=== PATIENT | male | born 1955 | race Caucasian/White ===

== ENCOUNTER 2019-07-12 04:05 | Inpatient (IN) | payer OTHER ==
--- NOTE | 2019-07-12 04:48 | RADIOLOGY REPORT (SQ) ---
CT head without contrast on 07/12/2019 at 4:08 AM CLINICAL INDICATION: Left-sided weakness TECHNIQUE: Multiple axial images are obtained throughout the head without the administration of contrast. This exam was performed according to our departmental dose-optimization program, which includes automated exposure control, adjustment of the mA and/or kV according to patient size and/or use of iterative reconstruction technique. Total DLP is 1043.77 mGy*cm. COMPARISON: None FINDINGS: There is no hydrocephalus. There is no CT evidence of acute infarct. There is no hemorrhage. There are no abnormal extra-axial fluid collections. There is no mass, mass effect or midline shift. No bony abnormality is noted. IMPRESSION: No acute intracranial abnormality.
[2019-07-12 04:55] LABS: INTERNATIONAL RATION (INR) 1.13; PARTIAL THROMBOPLASTIN TIME 26.5 SEC (23.5-35.8); PROTHROMBIN TIME 14.6 SEC (11.4-15.4)
--- NOTE | 2019-07-12 04:56 | RADIOLOGY REPORT (SQ) ---
EXAM DESCRIPTION: XR CHEST 1 VIEW COMPLETED DATE/TME: 07/12/2019 04:14 CLINICAL HISTORY: 64 years, Male, s/s stroke COMPARISON: None. NUMBER OF VIEWS: One TECHNIQUE: AP view of the chest LIMITATIONS: None. FINDINGS: The lungs are clear except for a calcified granuloma along the left upper lobe. Calcified left hilar lymph nodes are noted. There is no focal consolidation. The heart is normal in size. There is no pneumothorax or pleural effusion. The bones are unremarkable. IMPRESSION: No acute cardiopulmonary abnormality copyright 2010 [employer] [employer]- All Rights Reserved
[2019-07-12 05:00] LABS: ABSOLUTE BASOPHILS # (AUTO) 0.1 10^3/uL (0.0-0.2); ABSOLUTE EOSINOPHILS # (AUTO) 0.3 10^3/uL (0.0-0.6); ABSOLUTE LYMPHOCYTES (AUTO) 1.1 10^3/uL (0.5-4.7); ABSOLUTE MONOCYTES (AUTO) 0.5 10^3/uL (0.1-1.4); ABSOLUTE NEUT (AUTO) 3.4 10^3/uL (1.7-8.2); BASOPHILS % (AUTO) 1.1 % (0-2); EOSINOPHILS % (AUTO) 5.3 % (0-6); HEMATOCRIT 46.1 % (37.9-51.0); HEMOGLOBIN 15.9 g/dL (13.5-17.0); LYMPHOCYTES % (AUTO) 20.7 % (13-45); MEAN CORPUSCULAR HEMOGLOBIN 30.4 pg (27.0-33.4); MEAN CORPUSCULAR HGB CONC 34.6 g/dL (32.0-36.0); MEAN CORPUSCULAR VOLUME 88 fl (80-97); MONOCYTES % (AUTO) 8.8 % (3-13); PLATELET COUNT 194 10^3/uL (150-450); RED BLOOD COUNT 5.24 10^6/uL (4.35-5.55); RED CELL DISTRIBUTION WIDTH 13.3 % (11.5-14.0); SEGMENTED NEUTROPHILS % (AUTO) 64.1 % (42-78); TOTAL CELLS COUNTED % (AUTO) 100 %; WHITE BLOOD COUNT 5.3 10^3/uL (4.0-10.5)
[2019-07-12 05:11] LABS: ALBUMIN 4.2 g/dL (3.5-5.0); ALKALINE PHOSPHATASE 53 U/L (38-126); ANION GAP 8 (5-19); ASPARTATE AMINO TRANSFERASE 27 U/L (17-59); BILIRUBIN,TOTAL 0.7 mg/dL (0.2-1.3); BLOOD UREA NITROGEN 17 mg/dL (7-20); CALCIUM 9.7 mg/dL (8.4-10.2); CARBON DIOXIDE 26 mmol/L (22-30); CHLORIDE 104 mmol/L (98-107); CREATINE KINASE 128 U/L (55-170); GLUCOSE 138 mg/dL (75-110); POTASSIUM 4.1 mmol/L (3.6-5.0); TOTAL PROTEIN 7.1 g/dL (6.3-8.2)
[2019-07-12 05:22] LABS: CREATINE KINASE MB 1.64 ng/mL (<4.55)
[2019-07-12 05:24] LABS: TROPONIN I < 0.012 ng/mL
[2019-07-12] MEDS ORDERED: HYDRALAZINE HCL INJ/PF 20 MG/1 ML SDV IV ONE (06:12)
--- NOTE | 2019-07-12 06:12 | ER Document Report ---
ED Neuro Symptoms/Deficit - General Stated Complaint: POSSIBLE TIA Time Seen by Provider: 07/12/19 05:23 Notes: Patient is a 64-year-old male who presents to the emergency department with a chief complaint of strokelike symptoms. At 3:00 this morning he went to go get up and he ended up feeling a cramp in his left leg, which is normal for him, but then he was unable to move his left leg and his left arm and he has some slurred speech. Patient states that his symptoms ended up improving. Patient has a history of hypertension and is supposed to be on metoprolol and lisinopril, but has not been on them for the past month. Patient denies any major surgery. Has history of eye surgery in the past. - Related Data Allergies/Adverse Reactions: No Known Allergies Allergy (Unverified 07/12/19 06:36) Past Medical History - General Information source: Patient, Relative - Social History Smoking Status: Never Smoker Family History: Reviewed & Not Pertinent - Past Medical History Cardiac Medical History: Reports: Hx Hypertension Review of Systems - Review of Systems Notes: REVIEW OF SYSTEMS: CONSTITUTIONAL : Denies recent illness. Denies recent unintentional weight loss. Denies fever, chills, or sweats. EENT: Denies eye, ear, throat, or mouth pain, discharge, or symptoms. Denies nasal or sinus congestion. CARDIOVASCULAR: Denies chest pain. RESPIRATORY: Denies shortness of breath, cough, congestion, difficulty breathing, or wheezing. GASTROINTESTINAL: Denies nausea, vomiting, and diarrhea. Denies abdominal pain. Denies constipation. GENITOURINARY: Denies difficulty urinating, burning, blood in urine, urgency or frequency. MUSCULOSKELETAL: Denies neck and back pain. Denies joint pain or swelling. SKIN: Denies rash, itchiness, or lesions HEMATOLOGIC : Denies easy bruising or bleeding. LYMPHATIC: Denies swollen, painful, enlarged glands. NEUROLOGICAL: See HPI. PSYCHIATRIC: Denies stress, anxiety, alteration in sleep patterns, or depression. All other systems reviewed and negative. Physical Exam - Notes Notes: PHYSICAL EXAMINATION: GENERAL: Appears well, healthy, well-nourished, no acute distress. HEAD: Normocephalic, atraumatic. EYES: PERRL, conjunctiva normal, all extraocular movements intact, sclera nonicteric ENT: Moist mucous membranes. NECK: Supple, no noticeable swelling, redness, rash. Normal range of motion. LUNGS: Equal breath sounds bilaterally and clear to auscultation. No wheezes rales or rhonchi. CARDIOVASCULAR: S1-S2, regular rate, regular rhythm. Radial pulses 2+, normal. ABDOMEN: Normoactive bowel sounds. Soft, nontender, no guarding, no rebound tenderness, and no masses palpated. EXTREMITIES: Normal strength and range of motion, no pitting or edema. No cyanosis. NEUROLOGICAL: Moves all extremities upon command. Strength 5/5 in all extremities. PSYCH: Normal mood, normal affect. SKIN: Warm, dry. No rash, lesions, ulcerations noted. Normal skin turgor. Course - Re-evaluation Re-evalutation: 07/12/19 06:40 Hematology is unremarkable. Coags are unremarkable. Chemistries show glucose of 138. Troponin is negative. Patient has returned to baseline and there are no neurological deficits noted on my exam. Discussed this case with thierry Magana attending. He is recommending patient be admitted. Will call when dayshift is here. 07/12/19 07:35 Spoke with Marisabel Cerrato NP. Patient will be admitted to [facility]. - Laboratory Result Diagrams: 07/12/19 04:51 07/12/19 04:32 Laboratory results interpreted by me: 07/12/19 07/12/19 04:21 04:32 Glucose 138 H POC Glucose 130 H ED Alteplase Inc/Exc Criteria - Inclusion Criteria: 1: Patient presented to ED within 3 hours of acute ischemic stroke symptom onset? -: Yes 2: Did baseline CT exclude intracranial hemorrhage and/or other risk factors? -: Yes 3: Is the age of the patient 18 years of age or greater? -: Yes : If any of the above questions are answered "NO" then stop, patient is not a candidate for Alteplase, : If all of the above questions are answered "YES" then continue with Exclusion Criteria. - Exclusion Criteria: 1: Is there evidence of intracranial hemorrhage on baseline CT? -: No 2: Is there suspicion of subarachnoid hemorrhage (even if CT negative)? -: No 3: Is there a history of serious head trauma, recent previous stroke or PR within 3 months? -: No 4: Does the patient have a clinical presentation consistent with PR or post-PR pericarditis? -: No 5: Is there history of intracranial hemorrhage? -: No 6: On repeated measurement is Systolic BP greater than 185mmHg or Diastolic BP greater that 110 mmHg and is aggressive treatment needed to reduce blood pressure to these limits (e.g. constant infusion of an anti-hypertensive)? -: No 7: Did the patient awake with stroke symptoms? -: Yes 8: Has the patient had a lumbar puncture or an arterial puncture at a non- compressile site within 7 days? -: No 9: With in the last 14 days did the patient have surgery or major trauma? -: No 10: Is the patient or less than 2 weeks? -: No 11: Was there any active bleeding or acute trauma? -: No 12: Does the patient have intracranial neoplasm, arteriovenous malformation or aneurysm? -: No 13: Does the patient have abnormal glucose (less than 50 or greater than 400mg/dl)? Record glucose in Comment. -: No 14: Patient has rapidly improving symptoms at the time Alteplase is to be Administered. -: Yes 15: Does the patient have any risks for bleeding, including but not limited to: a.: Current use of Coumadin with PT greater than 15 seconds or INR greater than 1.7. b.: Current use of Pradaxa (Dabigatran). c.: Heparin administereed within the past 48 hours and PTT elevated. d.: Platelet count less than 100,000/mm. e.: Major surgery or serious trauma within 14 days. f.: Gastrointestinal or gynecological urinary bleeding within 14 days. g.: Myocardial Infarction (PR) within 3 months. -: No : If the answer to any of the above questions is "YES" then stop, the patient is not a candidate for Alteplase. : If the answer to all of the above questions is "NO" then the patient may be eligible for the Administration of Alteplase. : If the patient is noted to have seizure activity at onset of Stroke symptoms; Consult Neurologist for further evaluation. - The patient is: -: Included and is eligible to receive Alteplase. *Initiate bed placement at higher level of care* --: No Reviewed risks & benefits of thrombolytic therapy: I have reviewed the risks and benefits of thrombolytic therapy with the patient and/or his/her family. -: Excluded and not eligible to receive Alteplase for the above exclusions. -: Excluded and not eligible to receive Alteplase for other reasons (specify in comments): - Diagnosis of TIA: -: Patient presented with transient symptoms that are now resolved and no other neurologic findings are currently present. List symptoms in comments. -: Yes - Left sided weakness; slurred speech- now resolved -: Patient is NOT a candidate for tPA. -: Yes -: ____(put name in comment) has been consulted for admission and continued evaluation of risk factor assessment. Comment: Marisabel Cerrato NP Discharge - Discharge Clinical Impression: Left-sided weakness, Slurred speech Condition: Stable Disposition: ADMITTED INPATIENT Admitting Provider: Miriam (Hospitalist) Unit Admitted: [facility]
[2019-07-12] MEDS ORDERED: DOCUSATE SODIUM 100 MG CAPSULE PO PRN (07:42)
[2019-07-12] MEDS ORDERED: ACETAMINOPHEN 325 MG TABLET PO PRN (07:42)
[2019-07-12] MEDS ORDERED: ONDANSETRON HCL INJ/PF 4 MG/2 ML SDV IV PRN (07:42)
[2019-07-12] MEDS ORDERED: MAGNESIUM HYDROXIDE SUSP 30 ML UDCUP PO PRN (07:42)
[2019-07-12 08:31] LABS: CHOLESTEROL 182.24 mg/dL (0-200); TRIGLYCERIDES 123 mg/dL (<150)
[2019-07-12 08:42] LABS: DIRECT LDL 127 mg/dL (<100)
--- NOTE | 2019-07-12 09:40 | RADIOLOGY REPORT (SQ) ---
EXAM DESCRIPTION: MRI HEAD WITHOUT COMPLETED DATE/TIME: 07/12/2019 9:28 am REASON FOR STUDY: TIA; left sided weakness COMPARISON: None. TECHNIQUE: Multiplanar imaging includes non-contrasted T1, T2, FLAIR, and Diffusion with ADC map seq uences. Images stored on PACS. LIMITATIONS: None. FINDINGS: ANATOMY: No anomalies. Normal vascular flow voids. Pituitary fossa normal. CSF SPACES: Normal in size and contour. No hemorrhage. CEREBRUM: A few high-signal intensity lesions scattered throughout the white matter on FLAIR imaging with distribution suggesting chronic micro-vascular ischemic change. Sulci and gyri normal in size a nd contour. No evidence of hemorrhage, mass or extraaxial fluid collection. POSTERIOR FOSSA: No signal alteration. No hemorrhage. No edema, masses or mass effect. Internal viktoria tory canals, cerebello-pontine angles, mastoids normal. DIFFUSION: There is an oval area of abnormal high signal on diffusion in the right thalamus measuring 14 mm in maximum diameter. Dark on ADC map. ORBITS: No masses. Globes normal. PARANASAL SINUSES: No fluid levels. Mucosa normal. OTHER: No other significant finding. IMPRESSION: Acute, nonhemorrhagic lacunar type infarct right thalamus. EVIDENCE OF ACUTE STROKE: YES. 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 TECHNICAL DOCUMENTATION: JOB ID: [id number] [employer]- All Rights Reserved Reading location - IP/workstation name: [email or web address]
--- NOTE | 2019-07-12 09:41 | RADIOLOGY REPORT (SQ) ---
EXAM DESCRIPTION: MRA HEAD WITHOUT COMPLETED DATE/TIME: 07/12/2019 9:28 am REASON FOR STUDY: acute CVA COMPARISON: None. TECHNIQUE: Axial 3-D [id number] acquisition imaging performed through the brain in the area of t he [place]. Images reformatted using 3-D MIPS. LIMITATIONS: None. FINDINGS: SOURCE IMAGES: See separate report of the same date. 3-D MIP: No aneurysm. No occlusions. No significant stenosis. OTHER: No other significant finding. IMPRESSION: NORMAL MRA OF THE [place]. TECHNICAL DOCUMENTATION: JOB ID: [id number] [employer]- All Rights Reserved Reading location - IP/workstation name: [email or web address]
--- NOTE | 2019-07-12 09:46 | EKG REPORT ---
SEVERITY:- ABNORMAL ECG - SINUS RHYTHM PROBABLE INFERIOR INFARCT, AGE INDETERMINATE : Confirmed by: Alfa Segura 12-Jul-2019 09:46:12
[2019-07-12] MEDS: CLOPIDOGREL BISULFATE 75 MG TABLET PO SCH (10:14)
[2019-07-12] MEDS: ASPIRIN 81 MG TABLET, ENT COATED PO SCH (10:14)
[2019-07-12] MEDS ORDERED: MAGNESIUM OXIDE 400 MG TABLET PO ONE (11:00)
[2019-07-12] MEDS ORDERED: BACLOFEN 10 MG TABLET PO ONE (11:00)
--- NOTE | 2019-07-12 11:23 | RADIOLOGY REPORT (SQ) ---
EXAM DESCRIPTION: CAROTID DOPPLER COMPLETED DATE/TIME: 07/12/2019 11:06 am REASON FOR STUDY: TIA; left sided weakness COMPARISON: None. TECHNIQUE: Grayscale ultrasound, Doppler velocity and spectra, and color Doppler images acquired of the extra-cranial carotid and vertebral arteries. Images stored on PACS. LIMITATIONS: None. FINDINGS: RIGHT CAROTID CCA Velocities: Within normal limits. ICA Velocities Peak systolic 0.68 m/s. End diastolic 0.21 m/s. Proximal ICA/CCA peak systolic ratio 0.8. Spectra normal. No significant plaque. LEFT CAROTID CCA Velocities: Within normal limits. ICA Velocities Peak systolic 0.68 m/s. End diastolic 0.21 m/s. Proximal ICA/CCA peak systolic ratio 0.9. Spectra normal. No significant plaque. VERTEBRAL ARTERIES: Antegrade flow. Normal waveforms. SUBCLAVIAN ARTERIES: Not imaged. OTHER: No other significant finding. IMPRESSION: NO HEMODYNAMICALLY SIGNIFICANT STENOSIS. COMMENT: Quality ID #[id number]: Velocity criteria are extrapolated from the diameter data as defined by t he Society of Radiologists in Ultrasound Consensus Conference. Radiology 2003: 229; 340-346. TECHNICAL DOCUMENTATION: JOB ID: [id number] [employer] All Rights Reserved Reading location - IP/workstation name: [email or web address]
--- NOTE | 2019-07-12 12:56 | RADIOLOGY REPORT (SQ) ---
EXAM DESCRIPTION: VENOUS BILATERAL LOWER COMPLETED DATE/TIME: 07/12/2019 12:34 pm REASON FOR STUDY: pain/cramping. Acute CVA. COMPARISON: None. TECHNIQUE: Dynamic and static taylor scale and color images acquired of both lower extremity venous sy stems. Selected spectral images acquired with additional compression and augmentation maneuvers. Imag es stored on PACS. LIMITATIONS: None. FINDINGS: RIGHT LEG COMMON FEMORAL AND FEMORAL: Normal phasicity, compression and augmentation. No visualized echogenic m aterial on taylor scale. No defects on color images. POPLITEAL: Normal compression and augmentation. No visualized echogenic material on taylor scale. No de fects on color images. CALF VESSELS: Normal compression and augmentation. No visualized echogenic material on taylor scale. No defects on color image. GSV AND SSV: Normal compression. No visualized echogenic material on taylor scale. No defects on color images. ANY DEEP VENOUS INSUFFICIENCY: Not evaluated. ANY EVIDENCE OF POPLITEAL CYST: No. OTHER: No other significant finding. LEFT LEG COMMON FEMORAL AND FEMORAL: Normal phasicity, compression and augmentation. No visualized echogenic m aterial on taylor scale. No defects on color images. POPLITEAL: Normal compression and augmentation. No visualized echogenic material on taylor scale. No de fects on color images. CALF VESSELS: Normal compression and augmentation. No visualized echogenic material on taylor scale. No defects on color images. GSV AND SSV: Normal compression. No visualized echogenic material on taylor scale. No defects on color images. ANY DEEP VENOUS INSUFFICIENCY: Not evaluated. ANY EVIDENCE POPLITEAL CYST: No. OTHER: No other significant finding. IMPRESSION: NO EVIDENCE DVT OR SVT IN EITHER LEG. TECHNICAL DOCUMENTATION: JOB ID: [id number] [employer]- All Rights Reserved Reading location - IP/workstation name: [email or web address]
[2019-07-12] MEDS ORDERED: MAG HYDROX/AL HYDROX/SIMETH SUSP 30 ML UDCUP PO PRN (13:39)
[2019-07-12] MEDS: HEPARIN SOD (PORCINE) 5,000 UNIT/ML 1 ML VIAL SUBCUT SCH ×2 (15:18→21:19)
[2019-07-12] MEDS: CALCIUM CARBONATE 500 MG TAB.CHEW PO PRN (15:41)
[2019-07-12] MEDS ORDERED: HYDRALAZINE HCL INJ/PF 20 MG/1 ML SDV IV PRN (19:07)
--- NOTE | 2019-07-12 19:09 | PDOC H&P ---
History of Present Illness Admission Date/PCP: 07/12/19 08:07 IN CLINIC Patient complains of: Left sided weakness History of Present Illness: ALLAN LIMON is a 64 year old male who presented to the emergency department with complaint of left sided weakness noted upon waking with a right side calf cramp. He denied slurred speech, difficulty swallowing, headache, dizziness, blurred vision. He did have slight ambulatory dysfunction, though noted that he was having continued issues with muscle cramping. He does report that he has frequent leg cramps. He denied chest pain, palpitations, or prior history of atrial fibrillation. No prior history of TIA/CVA. Evaluation in the emergency department revealed hypertension (194/99) otherwise normal vital signs, normal CBC, coags, chemistry. EKG showed sinus rhythm. Head CT was negative for acute CVA. He was referred to the hospitalist service for admission and further evaluation of TIA. Past Medical History Cardiac Medical History: Reports: Hypertension Denies: Congestive Heart Failure, Coronary Artery Disease, Myocardial Infarction, Hyperlipidema Pulmonary Medical History: Reports: None EENT Medical History: Reports: None Neurological Medical History: Reports: None Endocrine Medical History: Reports: Obesity Renal/ Medical History: Reports: None Malignancy Medical History: Reports: None GI Medical History: Reports: None Musculoskeltal Medical History: Reports: None Skin Medical History: Reports: None Psychiatric Medical History: Reports: None Traumatic Medical History: Reports: None Hematology: Reports: None Infectious Medical History: Reports: None Past Surgical History Past Surgical History: Reports: Orthopedic Surgery, Other - Tear duct, Sinus Social History Information Source: Patient Lives with: Alone Smoking Status: Never Smoker Electronic Cigarette use?: No Frequency of Alcohol Use: Occasional Hx Recreational Drug Use: No Drugs: None Hx Prescription Drug Abuse: No - Advance Directive Resuscitation Status: Full Code Family History Family History: Reviewed & Not Pertinent Parental Family History Reviewed: Yes Children Family History Reviewed: Yes Sibling(s) Family History Reviewed.: Yes Medication/Allergy Home Medications: No Home Medications 07/12/19 Allergies/Adverse Reactions: No Known Allergies Allergy (Unverified 07/12/19 06:36) Review of Systems Constitutional: ABSENT: chills, fever(s), headache(s), weight gain, weight loss Eyes: ABSENT: visual disturbances Ears: ABSENT: hearing changes Cardiovascular: ABSENT: chest pain, dyspnea on exertion, edema, orthropnea, palpitations Respiratory: ABSENT: cough, hemoptysis Gastrointestinal: ABSENT: abdominal pain, constipation, diarrhea, hematemesis, hematochezia, nausea, vomiting Genitourinary: ABSENT: dysuria, hematuria Musculoskeletal: PRESENT: other - Right leg muscle cramp. ABSENT: joint swelling Integumentary: ABSENT: rash, wounds Neurological: PRESENT: focal weakness, lack of coordination. ABSENT: abnormal gait, abnormal speech, confusion, dizziness, syncope Psychiatric: ABSENT: anxiety, depression, homidical ideation, suicidal ideation Endocrine: ABSENT: cold intolerance, heat intolerance, polydipsia, polyuria Hematologic/Lymphatic: ABSENT: easy bleeding, easy bruising Physical Exam Vital Signs: Temp Pulse Resp BP Pulse Ox 97.7 F 71 12 176/87 H 100 07/12/19 04:15 07/12/19 06:00 07/12/19 07:01 07/12/19 07:01 07/12/19 07:01 Intake & Output 07/11/19 07/12/19 07/13/19 06:59 06:59 06:59 Weight 110 kg General appearance: PRESENT: no acute distress, cooperative, obese, well- developed, well-nourished Head exam: PRESENT: atraumatic, normocephalic Eye exam: PRESENT: conjunctiva pink, EOMI, PERRLA. ABSENT: scleral icterus Ear exam: PRESENT: normal external ear exam Mouth exam: PRESENT: moist, tongue midline Neck exam: ABSENT: carotid bruit, JVD, lymphadenopathy, thyromegaly Respiratory exam: PRESENT: clear to auscultation delores, symmetrical, unlabored. ABSENT: rales, rhonchi, wheezes Cardiovascular exam: PRESENT: RRR, +S1, +S2. ABSENT: diastolic murmur, rubs, systolic murmur Pulses: PRESENT: normal dorsalis pedis pul Vascular exam: PRESENT: normal capillary refill GI/Abdominal exam: PRESENT: normal bowel sounds, soft. ABSENT: distended, guarding, mass, organolmegaly, rebound, tenderness Rectal exam: PRESENT: deferred Extremities exam: PRESENT: full ROM. ABSENT: calf tenderness, clubbing, pedal edema Musculoskeletal exam: PRESENT: tenderness - RLE Neurological exam: PRESENT: alert, awake, oriented to person, oriented to place, oriented to time, oriented to situation, CN II-XII grossly intact, other - Rt blower room attendant 5/5, Lt blower room attendant 4/5, BLE dorsiflexion 5/5, no facial asymetry. ABSENT: motor sensory deficit Psychiatric exam: PRESENT: appropriate affect, normal mood. ABSENT: homicidal ideation, suicidal ideation Skin exam: PRESENT: dry, intact, warm. ABSENT: cyanosis, rash Results Laboratory Results: 07/12/19 04:51 07/12/19 04:32 07/12/19 07/12/19 07/12/19 04:32 04:32 04:51 WBC 5.3 RBC 5.24 Hgb 15.9 Hct 46.1 MCV 88 MCH 30.4 MCHC 34.6 RDW 13.3 Plt Count 194 Seg Neutrophils % 64.1 Sodium 138.1 Potassium 4.1 Chloride 104 Carbon Dioxide 26 Anion Gap 8 BUN 17 Creatinine 1.07 Est GFR ( Amer) > 60 Glucose 138 H Calcium 9.7 Total Bilirubin 0.7 AST 27 Alkaline Phosphatase 53 Total Protein 7.1 Albumin 4.2 Triglycerides 123 Cholesterol 182.24 LDL Cholesterol Direct 127 H VLDL Cholesterol 25.0 HDL Cholesterol 42 07/12/19 07/12/19 04:32 04:32 Creatine Kinase 128 CK-MB (CK-2) 1.64 Troponin I < 0.012 Impressions: Brain MRI with MRA 07/12/19 00:00 IMPRESSION: NORMAL MRA OF THE [place]. Head MRI 07/12/19 00:00 IMPRESSION: Acute, nonhemorrhagic lacunar type infarct right thalamus. EVIDENCE OF ACUTE STROKE: YES. 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 Chest X-Ray 07/12/19 04:14 IMPRESSION: No acute cardiopulmonary abnormality copyright 2011 [employer]- All Rights Reserved Head CT 07/12/19 04:14 IMPRESSION: No acute intracranial abnormality. Assessment and Plan - Diagnosis (1) Cerebrovascular accident (CVA) of right thalamus Is this a current diagnosis for this admission?: Yes Plan: Head CT negative. Head MRA benign. Head MRI demonstrated Acute, nonhemorrhagic lacunar type infarct of the right thalamus Carotid Doppler negative for hemodynamically significant stenosis. Bilateral venous Dopplers negative for SVT or DVT. EKG shows sinus rhythm; thus far no abnormal rhythms by telemetry. A1c 6.1%. HDL 42, LDL 127, triglycerides 123, total cholesterol 182. Patient is admitted to [facility] on continuous cardiac telemetry. He is placed on daily aspirin and Plavix. Start full dose statin. PT/OT/speech therapy consultation. Allow for permissive hypertension; IV hydralazine as needed for SBP greater than 180. Discharge planning and patient navigator consulted. (2) Hypertension Is this a current diagnosis for this admission?: Yes Plan: Patient admits to medication noncompliance with antihypertensive medications. Initial blood pressure in the ED 190s/90s; received IV hydralazine. Will allow permissive hypertension's x24 hours secondary to acute ischemic CVA. We will then gradually institute blood pressure control. Cardiac diet (3) Obesity (BMI 30.0-34.9) Is this a current diagnosis for this admission?: Yes Plan: Lifestyle modification dietary discretion advised. BMI 31.2 (4) Left-sided weakness Is this a current diagnosis for this admission?: Yes Plan: Secondary to #1. Evaluation management as above. - Time Time Spent with patient: 35 or more minutes Medications reviewed and adjusted accordingly: Yes Anticipated discharge: Home Within: within 24 hours
[2019-07-12] MEDS: ATORVASTATIN CALCIUM 80 MG TABLET PO SCH (21:19)
[2019-07-13 06:43] LABS: CHOLESTEROL 195.46 mg/dL (0-200); TRIGLYCERIDES 155 mg/dL (<150)
[2019-07-13] MEDS: HEPARIN SOD (PORCINE) 5,000 UNIT/ML 1 ML VIAL SUBCUT SCH ×3 (06:44→21:25)
[2019-07-13 06:53] LABS: DIRECT LDL 126 mg/dL (<100)
[2019-07-13] MEDS: ASPIRIN 81 MG TABLET, ENT COATED PO SCH (09:22)
[2019-07-13] MEDS: AMLODIPINE BESYLATE 10 MG TABLET PO SCH (09:22)
[2019-07-13] MEDS: CLOPIDOGREL BISULFATE 75 MG TABLET PO SCH (09:22)
--- NOTE | 2019-07-13 14:38 | PDOC PROGRESS REPORT ---
Subjective Progress Note for:: 07/13/19 Subjective:: ALLAN LIMON is a 64 year old male with a past medical history of hypertension who was admitted 07/12/2018 with an acute lacunar right thalamus CVA. The patient was seen on afternoon rounds. He is found resting in bed, comfortably, on room air. He is very fatigued and somewhat frustrated by his worsened left-sided weakness and ataxia following physical therapy this morning. He is encouraged that worsening symptoms when fatigued is expected in the immediate recovery period and that these exacerbations should lessen with time. We reviewed physical therapy's recommendation for acute rehabilitation and subsequent referral to Dr. Hansen. Spoke with the patient's on phone; they are both interested in maximizing therapy services. He denies headache, dizziness, blurred vision, slurred speech/difficulty swallowing chest pain, palpitations, dyspnea, orthopnea, abdominal pain, nausea, vomiting. He has no other questions or concerns at this time. No concerns per nursing. Of note, the patient confided that his son within the last couple of days. Understandably, he is feeling quite emotional and fatigued. This information was relayed to discharge planning as I anticipate that should he be admitted to an acute rehab facility, arrangements may need to be made for him to be able to attend his son's . Reason For Visit: TIA Physical Exam Vital Signs: Temp Pulse Resp BP Pulse Ox 97.5 F 72 16 158/87 H 94 07/13/19 08:14 07/13/19 12:00 07/13/19 12:00 07/13/19 12:00 07/13/19 12:00 Intake & Output 07/12/19 07/13/19 07/14/19 06:59 06:59 06:59 Intake Total 960 Output Total 1200 Balance -240 Weight 110 kg 104.8 kg General appearance: PRESENT: no acute distress, cooperative, well-developed, well-nourished Head exam: PRESENT: atraumatic, normocephalic Eye exam: PRESENT: conjunctiva pink, EOMI, PERRLA. ABSENT: scleral icterus Ear exam: PRESENT: normal external ear exam Mouth exam: PRESENT: moist, tongue midline Neck exam: ABSENT: carotid bruit, JVD, lymphadenopathy, thyromegaly Respiratory exam: PRESENT: clear to auscultation delores, symmetrical, unlabored. ABSENT: rales, rhonchi, wheezes Cardiovascular exam: PRESENT: RRR. ABSENT: diastolic murmur, rubs, systolic murmur Pulses: PRESENT: normal dorsalis pedis pul Vascular exam: PRESENT: normal capillary refill GI/Abdominal exam: PRESENT: normal bowel sounds, soft. ABSENT: distended, guarding, mass, organolmegaly, rebound, tenderness Rectal exam: PRESENT: deferred Extremities exam: PRESENT: full ROM. ABSENT: calf tenderness, clubbing, pedal edema Neurological exam: PRESENT: alert, awake, oriented to person, oriented to place, oriented to time, oriented to situation, CN II-XII grossly intact, other - Rt enforcement safety officer 5/5, Lt enforcement safety officer 4/5, BLE dorsiflexion 5/5, no facial asymetry. Decreased coordination; especially to left upper extremity. ABSENT: motor sensory deficit Psychiatric exam: PRESENT: appropriate affect, normal mood. ABSENT: homicidal ideation, suicidal ideation Skin exam: PRESENT: dry, intact, warm. ABSENT: cyanosis, rash Results Laboratory Results: 07/12/19 04:51 07/12/19 04:32 07/13/19 05:16 Triglycerides 155 H Cholesterol 195.46 LDL Cholesterol Direct 126 H VLDL Cholesterol 31.0 HDL Cholesterol 40 07/12/19 07/12/19 04:32 04:32 Creatine Kinase 128 CK-MB (CK-2) 1.64 Troponin I < 0.012 Impressions: Brain MRI with MRA 07/12/19 00:00 IMPRESSION: NORMAL MRA OF THE [place]. Head MRI 07/12/19 00:00 IMPRESSION: Acute, nonhemorrhagic lacunar type infarct right thalamus. EVIDENCE OF ACUTE STROKE: YES. RIGHT DIRECTOR TELEHEALTH. Venous Doppler Study 07/12/19 00:00 IMPRESSION: NO EVIDENCE DVT OR SVT IN EITHER LEG. Chest X-Ray 07/12/19 04:14 IMPRESSION: No acute cardiopulmonary abnormality copyright 2011 [employer]- All Rights Reserved Head CT 07/12/19 04:14 IMPRESSION: No acute intracranial abnormality. Carotid Doppler Study 07/12/19 07:44 IMPRESSION: NO HEMODYNAMICALLY SIGNIFICANT STENOSIS. Assessment and Plan - Diagnosis (1) Cerebrovascular accident (CVA) of right thalamus Is this a current diagnosis for this admission?: Yes Plan: Head CT negative. Head MRA benign. Head MRI demonstrated Acute, nonhemorrhagic lacunar type infarct of the right thalamus Carotid Doppler negative for hemodynamically significant stenosis. Bilateral venous Dopplers negative for SVT or DVT. EKG shows sinus rhythm; thus far no abnormal rhythms by telemetry. A1c 6.1%. HDL 42, LDL 127, triglycerides 123, total cholesterol 182. Patient is admitted to [facility] on continuous cardiac telemetry. He is placed on daily aspirin and Plavix. Continue full dose statin. Will start amlodipine today. PT/OT/speech therapy consultation. Discharge planning and patient navigator consulted. PT/OT recommending Acute Rehab; have consulted Dr. Hansen. (2) Hypertension Is this a current diagnosis for this admission?: Yes Plan: Patient admits to medication noncompliance with antihypertensive medications. Initial blood pressure in the ED 190s/90s; received IV hydralazine. Will start amlodipine today. Cardiac diet (3) Obesity (BMI 30.0-34.9) Is this a current diagnosis for this admission?: Yes Plan: Lifestyle modification dietary discretion advised. BMI 30.5 (4) Left-sided weakness Is this a current diagnosis for this admission?: Yes Plan: Secondary to #1. Evaluation and management as above. - Time Time Spent with patient: 35 or more minutes Medications reviewed and adjusted accordingly: Yes Anticipated discharge: Acute Rehab Within: when bed available
[2019-07-13] MEDS: ATORVASTATIN CALCIUM 80 MG TABLET PO SCH (21:25)
[2019-07-14] MEDS: HEPARIN SOD (PORCINE) 5,000 UNIT/ML 1 ML VIAL SUBCUT SCH ×3 (05:08→21:02)
[2019-07-14] MEDS: AMLODIPINE BESYLATE 10 MG TABLET PO SCH (09:25)
[2019-07-14] MEDS: ASPIRIN 81 MG TABLET, ENT COATED PO SCH (09:25)
[2019-07-14] MEDS: CLOPIDOGREL BISULFATE 75 MG TABLET PO SCH (09:25)
[2019-07-14] MEDS: BACLOFEN 10 MG TABLET PO PRN ×3 (09:26→21:02)
--- NOTE | 2019-07-14 16:12 | PDOC PROGRESS REPORT ---
Subjective Progress Note for:: 07/14/19 Subjective:: ALLAN LIMON is a 64 year old male with a past medical history of hypertension who was admitted 07/12/2018 with an acute lacunar right thalamus CVA. The patient was seen on afternoon rounds. He is found resting in bed, comfortably, on room air. He reports continued fatigue, though improved from yesterday. Continued left side weakness w/ difficulty with coordination; though notably improved from time of admission. He denies headache, dizziness, blurred vision, slurred speech/difficulty swallowing chest pain, palpitations, dyspnea, orthopnea, abdominal pain, nausea, vomiting. He has no other questions or concerns at this time. No concerns per nursing. Of note, the patient confided that his son within the last couple of days. Understandably, he is feeling quite emotional and fatigued. This information was relayed to discharge planning as I anticipate that should he be admitted to an acute rehab facility, arrangements may need to be made for him to be able to attend his son's . Reason For Visit: CVA RIGHT THALAMUS,HYPERTENSION,OBESITY,LEFT SIDED Physical Exam Vital Signs: Temp Pulse Resp BP Pulse Ox 97.7 F 73 15 150/83 H 97 07/14/19 11:15 07/14/19 14:00 07/14/19 12:00 07/14/19 12:00 07/14/19 12:00 Intake & Output 07/13/19 07/14/19 07/15/19 06:59 06:59 06:59 Intake Total 960 2631 Output Total 1200 1500 Balance -240 1131 Weight 104.8 kg 104.6 kg General appearance: PRESENT: no acute distress, cooperative, well-developed, well-nourished Head exam: PRESENT: atraumatic, normocephalic Eye exam: PRESENT: conjunctiva pink, EOMI, PERRLA. ABSENT: scleral icterus Ear exam: PRESENT: normal external ear exam Mouth exam: PRESENT: moist, tongue midline Respiratory exam: PRESENT: clear to auscultation delores, symmetrical, unlabored. ABSENT: rales, rhonchi, wheezes Cardiovascular exam: PRESENT: RRR, +S1, +S2. ABSENT: diastolic murmur, rubs, systolic murmur Pulses: PRESENT: normal dorsalis pedis pul Vascular exam: PRESENT: normal capillary refill GI/Abdominal exam: PRESENT: normal bowel sounds, soft. ABSENT: distended, guarding, mass, organolmegaly, rebound, tenderness Rectal exam: PRESENT: deferred Extremities exam: PRESENT: full ROM. ABSENT: calf tenderness, clubbing, pedal edema Neurological exam: PRESENT: alert, awake, oriented to person, oriented to place, oriented to time, oriented to situation, CN II-XII grossly intact, other - Rt interior systems carpenter 5/5, Lt interior systems carpenter 4/5, BLE dorsiflexion 5/5, no facial asymetry. Decreased coordination; especially to left upper extremity.. ABSENT: motor sensory deficit Psychiatric exam: PRESENT: appropriate affect, normal mood. ABSENT: homicidal ideation, suicidal ideation Skin exam: PRESENT: dry, intact, warm. ABSENT: cyanosis, rash Results Laboratory Results: 07/12/19 04:51 07/12/19 04:32 07/12/19 07/12/19 04:32 04:32 Creatine Kinase 128 CK-MB (CK-2) 1.64 Troponin I < 0.012 Impressions: Brain MRI with MRA 07/12/19 00:00 IMPRESSION: NORMAL MRA OF THE [place]. Head MRI 07/12/19 00:00 IMPRESSION: Acute, nonhemorrhagic lacunar type infarct right thalamus. EVIDENCE OF ACUTE STROKE: YES. 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 Venous Doppler Study 07/12/19 00:00 IMPRESSION: NO EVIDENCE DVT OR SVT IN EITHER LEG. Chest X-Ray 07/12/19 04:14 IMPRESSION: No acute cardiopulmonary abnormality copyright 2010 [employer]- All Rights Reserved Head CT 07/12/19 04:14 IMPRESSION: No acute intracranial abnormality. Carotid Doppler Study 07/12/19 07:44 IMPRESSION: NO HEMODYNAMICALLY SIGNIFICANT STENOSIS. Assessment and Plan - Diagnosis (1) Cerebrovascular accident (CVA) of right thalamus Is this a current diagnosis for this admission?: Yes Plan: Head CT negative. Head MRA benign. Head MRI demonstrated Acute, nonhemorrhagic lacunar type infarct of the right thalamus Carotid Doppler negative for hemodynamically significant stenosis. Bilateral venous Dopplers negative for SVT or DVT. EKG shows sinus rhythm; thus far no abnormal rhythms by telemetry. A1c 6.1%. HDL 42, LDL 127, triglycerides 123, total cholesterol 182. Patient is admitted to [facility]; will d/c telemetry. He is placed on daily aspirin and Plavix. Continue full dose statin. Will start amlodipine today. PT/OT/speech therapy consultation. Discharge planning and patient navigator consulted. PT/OT recommending Acute Rehab; awaiting bed offer. (2) Hypertension Is this a current diagnosis for this admission?: Yes Plan: Patient admits to medication noncompliance with antihypertensive medications. Initial blood pressure in the ED 190s/90s; received IV hydralazine. Blood pressures improved, but remain elevated 150/83 Will start lisinopril today. Continue amlodipine. Cardiac diet (3) Obesity (BMI 30.0-34.9) Is this a current diagnosis for this admission?: Yes Plan: Lifestyle modification dietary discretion advised. BMI 30.5 (4) Left-sided weakness Is this a current diagnosis for this admission?: Yes Plan: Secondary to #1. Evaluation and management as above. - Time Time Spent with patient: 25-34 minutes Medications reviewed and adjusted accordingly: Yes Anticipated discharge: Acute Rehab Within: when bed available
[2019-07-14] MEDS: LISINOPRIL 10 MG TABLET PO SCH (17:23)
[2019-07-14] MEDS: ATORVASTATIN CALCIUM 80 MG TABLET PO SCH (21:02)
[2019-07-15] MEDS: HEPARIN SOD (PORCINE) 5,000 UNIT/ML 1 ML VIAL SUBCUT SCH ×3 (06:21→21:13)
[2019-07-15] MEDS: ASPIRIN 81 MG TABLET, ENT COATED PO SCH (10:46)
[2019-07-15] MEDS: CLOPIDOGREL BISULFATE 75 MG TABLET PO SCH (10:46)
[2019-07-15] MEDS: AMLODIPINE BESYLATE 10 MG TABLET PO SCH (10:46)
[2019-07-15] MEDS: LISINOPRIL 10 MG TABLET PO SCH (10:47)
--- NOTE | 2019-07-15 14:27 | PDOC PROGRESS REPORT ---
Subjective Progress Note for:: 07/15/19 Subjective:: ALLAN LIMON is a 64 year old male with a past medical history of hypertension who was admitted 07/12/2018 with an acute lacunar right thalamus CVA. The patient was seen on afternoon rounds his present. He is found sitting up to the edge of the bed, comfortably, on room air. Continued left side weakness w/ difficulty with coordination; somewhat worse today. However, patient does report that he has been exercising frequently with the elastic band and may just be fatigued. He denies headache, dizziness, blurred vision, slurred speech/difficulty swallowing chest pain, palpitations, dyspnea, orthopnea, abdominal pain, nausea, vomiting. He has no other questions or concerns at this time. No concerns per nursing. Reason For Visit: CVA RIGHT THALAMUS,HYPERTENSION,OBESITY,LEFT SIDED Physical Exam Vital Signs: Temp Pulse Resp BP Pulse Ox 97.7 F 69 16 128/67 H 94 07/15/19 11:29 07/15/19 11:33 07/15/19 07:18 07/15/19 11:33 07/15/19 11:33 Intake & Output 07/14/19 07/15/19 07/16/19 06:59 06:59 06:59 Intake Total 2631 2382 1882 Output Total 1500 1075 300 Balance 1131 1307 1582 Weight 104.6 kg 104.8 kg General appearance: PRESENT: no acute distress, cooperative, well-developed, well-nourished - Overweight Head exam: PRESENT: atraumatic, normocephalic Eye exam: PRESENT: conjunctiva pink, EOMI, PERRLA. ABSENT: scleral icterus Ear exam: PRESENT: normal external ear exam Mouth exam: PRESENT: moist, tongue midline Respiratory exam: PRESENT: clear to auscultation delores, symmetrical, unlabored. ABSENT: rales, rhonchi, wheezes Cardiovascular exam: PRESENT: RRR. ABSENT: diastolic murmur, rubs, systolic murmur Pulses: PRESENT: normal dorsalis pedis pul Vascular exam: PRESENT: normal capillary refill GI/Abdominal exam: PRESENT: normal bowel sounds, soft. ABSENT: distended, guarding, mass, organolmegaly, rebound, tenderness Rectal exam: PRESENT: deferred Extremities exam: PRESENT: full ROM. ABSENT: calf tenderness, clubbing, pedal edema Musculoskeletal exam: PRESENT: ambulatory - With walker Neurological exam: PRESENT: alert, awake, oriented to person, oriented to place, oriented to time, oriented to situation, CN II-XII grossly intact. ABSENT: motor sensory deficit Psychiatric exam: PRESENT: appropriate affect, normal mood. ABSENT: homicidal ideation, suicidal ideation Skin exam: PRESENT: dry, intact, warm. ABSENT: cyanosis, rash Results Laboratory Results: 07/12/19 04:51 07/12/19 04:32 07/12/19 07/12/19 04:32 04:32 Creatine Kinase 128 CK-MB (CK-2) 1.64 Troponin I < 0.012 Impressions: Brain MRI with MRA 07/12/19 00:00 IMPRESSION: NORMAL MRA OF THE [place]. Head MRI 07/12/19 00:00 IMPRESSION: Acute, nonhemorrhagic lacunar type infarct right thalamus. EVIDENCE OF ACUTE STROKE: YES. RIGHT CHARGE HAND. Venous Doppler Study 07/12/19 00:00 IMPRESSION: NO EVIDENCE DVT OR SVT IN EITHER LEG. Chest X-Ray 07/12/19 04:14 IMPRESSION: No acute cardiopulmonary abnormality copyright 2011 [employer]- All Rights Reserved Head CT 07/12/19 04:14 IMPRESSION: No acute intracranial abnormality. Carotid Doppler Study 07/12/19 07:44 IMPRESSION: NO HEMODYNAMICALLY SIGNIFICANT STENOSIS. Assessment and Plan - Diagnosis (1) Cerebrovascular accident (CVA) of right thalamus Is this a current diagnosis for this admission?: Yes Plan: Head CT negative. Head MRA benign. Head MRI demonstrated Acute, nonhemorrhagic lacunar type infarct of the right thalamus Carotid Doppler negative for hemodynamically significant stenosis. Bilateral venous Dopplers negative for SVT or DVT. EKG shows sinus rhythm; thus far no abnormal rhythms by telemetry. A1c 6.1%. HDL 42, LDL 127, triglycerides 123, total cholesterol 182. Patient is admitted to [facility]; will d/c telemetry. He is placed on daily aspirin and Plavix. Continue full dose statin. Continue amlodipine and lisinopril for blood pressure control. PT/OT/speech therapy consultation. Discharge planning and patient navigator consulted. PT/OT recommending Acute Rehab; awaiting bed offer. (2) Hypertension Is this a current diagnosis for this admission?: Yes Plan: Excellent blood pressure control today. Initial blood pressure in the ED 190s/90s; received IV hydralazine. Continue amlodipine and lisinopril IV hydralazine as needed for blood pressure control Cardiac diet (3) Obesity (BMI 30.0-34.9) Is this a current diagnosis for this admission?: Yes Plan: Lifestyle modification dietary discretion advised. BMI 30.5 (4) Acid reflux Qualifiers: Esophagitis presence: without esophagitis Qualified Code(s): K21.9 - Gastro-esophageal reflux disease without esophagitis Is this a current diagnosis for this admission?: Yes Plan: TUMS and Maalox as needed Twice daily Pepcid (5) Left-sided weakness Is this a current diagnosis for this admission?: Yes Plan: Secondary to #1. Evaluation and management as above. - Time Time Spent with patient: 15-24 minutes Medications reviewed and adjusted accordingly: Yes Anticipated discharge: Acute Rehab Within: when bed available
[2019-07-15] MEDS: ATORVASTATIN CALCIUM 80 MG TABLET PO SCH (21:11)
[2019-07-15] MEDS: FAMOTIDINE 20 MG TABLET PO SCH (21:11)
[2019-07-16] MEDS: HEPARIN SOD (PORCINE) 5,000 UNIT/ML 1 ML VIAL SUBCUT SCH ×3 (05:41→21:06)
[2019-07-16] MEDS: CLOPIDOGREL BISULFATE 75 MG TABLET PO SCH (10:03)
[2019-07-16] MEDS: LISINOPRIL 10 MG TABLET PO SCH (10:03)
[2019-07-16] MEDS: FAMOTIDINE 20 MG TABLET PO SCH ×2 (10:03→21:06)
[2019-07-16] MEDS: AMLODIPINE BESYLATE 10 MG TABLET PO SCH (10:04)
[2019-07-16] MEDS: ASPIRIN 81 MG TABLET, ENT COATED PO SCH (10:05)
--- NOTE | 2019-07-16 15:39 | PDOC TRANSFER SUMMARY ---
General Admission Date/PCP: 07/12/19 08:07 [facility] Admission Date: 07/12/19 Transfer Date: 07/18/19 - Anticipated transfer date Accepting Facility: [facility] Resuscitation Status: Full Code - Transfer Diagnosis (1) Cerebrovascular accident (CVA) of right thalamus Is this a current diagnosis for this admission?: Yes Diagnosis Summary: Head CT negative. Head MRA benign. Head MRI demonstrated Acute, nonhemorrhagic lacunar type infarct of the right thalamus Carotid Doppler negative for hemodynamically significant stenosis. Bilateral venous Dopplers negative for SVT or DVT. EKG shows sinus rhythm; no abnormal rhythms by telemetry. A1c 6.1%. HDL 42, LDL 127, triglycerides 123, total cholesterol 182. Patient was admitted to [facility] on continuous cardiac telemetry. He was not noted to have any abnormal rhythms by telemetry x72 hours. He was placed on daily aspirin, statin, and Plavix therapy. Amlodipine and lisinopril were started for blood pressure control after allowing for permissive hypertension. PT/OT/ST consultations were obtained. PT/OT recommend transfer for acute rehabilitation. (2) Hypertension Is this a current diagnosis for this admission?: Yes Diagnosis Summary: Initial blood pressure is 190/97. Excellent blood pressure control achieved with amlodipine and lisinopril following 24 hours of permissive hypertension. Patient is placed on a cardiac diet. (3) Obesity (BMI 30.0-34.9) Is this a current diagnosis for this admission?: Yes Diagnosis Summary: Lifestyle modification dietary discretion advised. BMI 30.5 (4) Acid reflux Is this a current diagnosis for this admission?: Yes Diagnosis Summary: Patient placed on twice daily Pepcid. Tums and Maalox as needed. (5) Left-sided weakness Is this a current diagnosis for this admission?: Yes Diagnosis Summary: Improved. Secondary #1. Evaluation management as above. - Transfer Medications Transfer Medications: Current Medications Acetaminophen (Tylenol 325 Mg Tablet) 650 mg PO Q4HP PRN PRN Reason: Temp greater than 101F Stop: 08/11/19 07:41 Al Hydrox/Mg Hydrox/Simethicone (Maalox Plus Susp 30 Udcup) 30 ml PO Q6HP PRN PRN Reason: HEARTBURN Stop: 08/11/19 13:38 Amlodipine Besylate (Norvasc 10 Mg Tablet) 10 mg PO DAILY [facility] Stop: 08/12/19 09:59 Last Admin: 07/16/19 10:04 Dose: 10 mg Documented by: Aspirin (Ecotrin 81 Mg Ec Tablet) 81 mg PO DAILY [facility] Stop: 08/11/19 09:59 Last Admin: 07/16/19 10:05 Dose: 81 mg Documented by: Atorvastatin Calcium (Lipitor 80 Mg Tablet) 80 mg PO QHS [facility] Stop: 08/11/19 21:59 Last Admin: 07/15/19 21:11 Dose: 80 mg Documented by: Baclofen (Baclofen 10 Mg Tablet) 10 mg PO TIDP PRN PRN Reason: MUSCLE SPASMS Stop: 08/11/19 19:06 Last Admin: 07/14/19 21:02 Dose: 10 mg Documented by: Calcium Carbonate (Tums Chewable 500 Mg Tab.Chew) 500 mg PO TIDP PRN PRN Reason: HEARTBURN Stop: 08/11/19 13:38 Last Admin: 07/12/19 15:41 Dose: 500 mg Documented by: Clopidogrel Bisulfate (Plavix 75 Mg Tablet) 75 mg PO DAILY [facility] Stop: 08/11/19 09:59 Last Admin: 07/16/19 10:03 Dose: 75 mg Documented by: Docusate Sodium (Colace 100 Mg Capsule) 100 mg PO BIDP PRN PRN Reason: FOR CONSTIPATION Stop: 08/11/19 07:41 Famotidine (Pepcid 20 Mg Tablet) 20 mg PO Q12 [facility] Stop: 08/14/19 21:59 Last Admin: 07/16/19 10:03 Dose: 20 mg Documented by: Heparin Sodium (Porcine) (Heparin Inj 5,000 Units/Ml 1 Ml Vial) 5,000 unit SUBCUT Q8 [facility] Stop: 08/11/19 13:59 Last Admin: 07/16/19 14:24 Dose: 5,000 unit Documented by: Hydralazine HCl (Apresoline Inj/Pf 20 Mg/1 Ml Sdv) 10 mg IV Q6HP PRN PRN Reason: SBP>180, DBP>100 Stop: 08/11/19 19:06 Lisinopril (Prinivil 10 Mg Tablet) 10 mg PO DAILY [facility] Stop: 08/13/19 16:59 Last Admin: 07/16/19 10:03 Dose: 10 mg Documented by: Magnesium Hydroxide (Milk Of Magnesia 30 Ml Udcup) 30 ml PO HSP PRN PRN Reason: FOR CONSTIPATION Stop: 08/11/19 07:41 Ondansetron HCl (Zofran Inj/Pf 4 Mg/2 Ml Sdv) 8 mg IV Q6HP PRN PRN Reason: FOR NAUSEA/VOMITING Stop: 08/11/19 07:41 Sodium Chloride (Saline Flush 2.5 Ml Monoject Prefil Syrin) 2.5 ml IV Q8 [facility] Stop: 08/11/19 13:59 Last Admin: 07/16/19 14:27 Dose: Not Given Documented by: - Allergies Allergies/Adverse Reactions: No Known Allergies Allergy (Unverified 07/12/19 06:36) - Diet/Activity Discharge Diet: Cardiac Discharge Activity: Balance Activity w/Rest Hospital Course Hospital Course: H&P: ALLAN LIMON is a 64 year old male who presented to the emergency department with complaint of left sided weakness noted upon waking with a right side calf cramp. He denied slurred speech, difficulty swallowing, headache, dizziness, blurred vision. He did have slight ambulatory dysfunction, though noted that he was having continued issues with muscle cramping. He does report that he has frequent leg cramps. He denied chest pain, palpitations, or prior history of atrial fibrillation. No prior history of TIA/CVA. Evaluation in the emergency department revealed hypertension (194/99) otherwise normal vital signs, normal CBC, coags, chemistry. EKG showed sinus rhythm. Head CT was negative for acute CVA. He was referred to the hospitalist service for admission and further evaluation of TIA. Course: As above Physical Exam Vital Signs: Temp Pulse Resp BP Pulse Ox 97.8 F 76 18 122/69 99 07/16/19 13:20 07/16/19 14:00 07/16/19 13:20 07/16/19 13:20 07/16/19 13:20 Intake & Output 07/15/19 07/16/19 07/17/19 06:59 06:59 06:59 Intake Total 2382 2992 Output Total 1075 1900 Balance 1307 1092 Weight 104.8 kg 104.8 kg General appearance: PRESENT: no acute distress, cooperative, obese, well- developed, well-nourished Head exam: PRESENT: atraumatic, normocephalic Eye exam: PRESENT: conjunctiva pink, EOMI, PERRLA. ABSENT: scleral icterus Ear exam: PRESENT: normal external ear exam Mouth exam: PRESENT: moist, tongue midline Neck exam: ABSENT: carotid bruit, JVD, lymphadenopathy, thyromegaly Respiratory exam: PRESENT: clear to auscultation delores, symmetrical, unlabored. ABSENT: rales, rhonchi, wheezes Cardiovascular exam: PRESENT: RRR, +S1, +S2. ABSENT: diastolic murmur, rubs, systolic murmur Pulses: PRESENT: normal dorsalis pedis pul Vascular exam: PRESENT: normal capillary refill GI/Abdominal exam: PRESENT: normal bowel sounds, soft. ABSENT: distended, guarding, mass, organolmegaly, rebound, tenderness Rectal exam: PRESENT: deferred Extremities exam: PRESENT: full ROM. ABSENT: calf tenderness, clubbing, pedal edema Musculoskeletal exam: PRESENT: ambulatory - w/ front wheel walker Neurological exam: PRESENT: alert, awake, oriented to person, oriented to place, oriented to time, oriented to situation, CN II-XII grossly intact, other - Rt baby formula worker 5/5, Lt baby formula worker 4/5, BLE dorsiflexion 5/5, no facial asymetry. Decreased coordination; especially to left upper extremity. ABSENT: motor sensory deficit Psychiatric exam: PRESENT: appropriate affect, normal mood. ABSENT: homicidal ideation, suicidal ideation Skin exam: PRESENT: dry, intact, warm. ABSENT: cyanosis, rash Results Laboratory Results: 07/12/19 04:51 07/12/19 04:32 07/12/19 07/12/19 04:32 04:32 Creatine Kinase 128 CK-MB (CK-2) 1.64 Troponin I < 0.012 Impressions: Brain MRI with MRA 07/12/19 00:00 IMPRESSION: NORMAL MRA OF THE [place]. Head MRI 07/12/19 00:00 IMPRESSION: Acute, nonhemorrhagic lacunar type infarct right thalamus. EVIDENCE OF ACUTE STROKE: YES. 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 Venous Doppler Study 07/12/19 00:00 IMPRESSION: NO EVIDENCE DVT OR SVT IN EITHER LEG. Chest X-Ray 07/12/19 04:14 IMPRESSION: No acute cardiopulmonary abnormality copyright 2011 [employer]- All Rights Reserved Head CT 07/12/19 04:14 IMPRESSION: No acute intracranial abnormality. Carotid Doppler Study 07/12/19 07:44 IMPRESSION: NO HEMODYNAMICALLY SIGNIFICANT STENOSIS. Plan Discharge Plan: Transfer to Acute Rehab pending patient insurance authorization. Time Spent: Greater than 30 Minutes
[2019-07-16] MEDS: ATORVASTATIN CALCIUM 80 MG TABLET PO SCH (21:06)
[2019-07-17] MEDS: HEPARIN SOD (PORCINE) 5,000 UNIT/ML 1 ML VIAL SUBCUT SCH ×3 (05:26→21:15)
[2019-07-17] MEDS: LISINOPRIL 10 MG TABLET PO SCH (10:50)
[2019-07-17] MEDS: FAMOTIDINE 20 MG TABLET PO SCH ×2 (10:51→21:14)
[2019-07-17] MEDS: ASPIRIN 81 MG TABLET, ENT COATED PO SCH (10:51)
[2019-07-17] MEDS: CLOPIDOGREL BISULFATE 75 MG TABLET PO SCH (10:51)
[2019-07-17] MEDS: AMLODIPINE BESYLATE 10 MG TABLET PO SCH (10:51)
--- NOTE | 2019-07-17 18:35 | PDOC PROGRESS REPORT ---
Subjective Progress Note for:: 07/17/19 Subjective:: ALLAN LIMON is a 64 year old male with a past medical history of hypertension who was admitted 07/12/2018 with an acute lacunar right thalamus CVA. The patient was seen on evening rounds. He was found resting in bed, comfortably, on room air. Continued left side weakness w/ difficulty with coordination; waxing and waning. Overall, improved. He denies headache, dizziness, blurred vision, slurred speech/difficulty swallowing chest pain, palpitations, dyspnea, orthopnea, abdominal pain, nausea, vomiting. He has no other questions or concerns at this time. No concerns per nursing. Reason For Visit: CVA RIGHT THALAMUS,HYPERTENSION,OBESITY,LEFT SIDED Physical Exam Vital Signs: Temp Pulse Resp BP Pulse Ox 98.0 F 81 18 136/81 H 97 07/17/19 10:50 07/17/19 10:50 07/17/19 10:50 07/17/19 10:50 07/17/19 10:50 Intake & Output 07/16/19 07/17/19 07/18/19 06:59 06:59 06:59 Intake Total 2992 1200 350 Output Total 1900 1200 500 Balance 1092 0 -150 Weight 104.8 kg 104.1 kg General appearance: PRESENT: no acute distress, cooperative, well-developed, well-nourished Head exam: PRESENT: atraumatic, normocephalic Eye exam: PRESENT: conjunctiva pink, EOMI, PERRLA. ABSENT: scleral icterus Mouth exam: PRESENT: moist, tongue midline Respiratory exam: PRESENT: clear to auscultation delores, symmetrical, unlabored. ABSENT: rales, rhonchi, wheezes Cardiovascular exam: PRESENT: RRR, +S1, +S2. ABSENT: diastolic murmur, rubs, systolic murmur Vascular exam: PRESENT: normal capillary refill Extremities exam: PRESENT: full ROM. ABSENT: calf tenderness, clubbing, pedal edema Neurological exam: PRESENT: alert, awake, oriented to person, oriented to place, oriented to time, oriented to situation, CN II-XII grossly intact, other - Rt fitness plan coordinator 5/5, Lt fitness plan coordinator 4/5, BLE dorsiflexion 5/5, no facial asymetry. Decreased co ordination; especially to left upper extremity. ABSENT: motor sensory deficit Psychiatric exam: PRESENT: appropriate affect, normal mood. ABSENT: homicidal ideation, suicidal ideation Skin exam: PRESENT: dry, intact, warm. ABSENT: cyanosis, rash Results Laboratory Results: 07/12/19 04:51 07/12/19 04:32 07/12/19 07/12/19 04:32 04:32 Creatine Kinase 128 CK-MB (CK-2) 1.64 Troponin I < 0.012 Impressions: Brain MRI with MRA 07/12/19 00:00 IMPRESSION: NORMAL MRA OF THE [place]. Head MRI 07/12/19 00:00 IMPRESSION: Acute, nonhemorrhagic lacunar type infarct right thalamus. EVIDENCE OF ACUTE STROKE: YES. RIGHT LEAD NETWORK ARCHITECT. Venous Doppler Study 07/12/19 00:00 IMPRESSION: NO EVIDENCE DVT OR SVT IN EITHER LEG. Chest X-Ray 07/12/19 04:14 IMPRESSION: No acute cardiopulmonary abnormality copyright 2011 [employer]- All Rights Reserved Head CT 07/12/19 04:14 IMPRESSION: No acute intracranial abnormality. Carotid Doppler Study 07/12/19 07:44 IMPRESSION: NO HEMODYNAMICALLY SIGNIFICANT STENOSIS. Assessment and Plan - Diagnosis (1) Cerebrovascular accident (CVA) of right thalamus Is this a current diagnosis for this admission?: Yes Plan: Head CT negative. Head MRA benign. Head MRI demonstrated Acute, nonhemorrhagic lacunar type infarct of the right thalamus Carotid Doppler negative for hemodynamically significant stenosis. Bilateral venous Dopplers negative for SVT or DVT. EKG shows sinus rhythm; thus far no abnormal rhythms by telemetry. A1c 6.1%. HDL 42, LDL 127, triglycerides 123, total cholesterol 182. Patient is admitted to [facility]; have d/c'd telemetry. He is placed on daily aspirin and Plavix. Continue full dose statin. Continue amlodipine and lisinopril for blood pressure control. PT/OT/speech therapy consultation. Discharge planning and patient navigator consulted. PT/OT recommending Acute Rehab; awaiting bed offer. (2) Hypertension Is this a current diagnosis for this admission?: Yes Plan: Excellent blood pressure control today. Initial blood pressure in the ED 190s/90s Continue amlodipine and lisinopril IV hydralazine as needed for blood pressure control Cardiac diet (3) Obesity (BMI 30.0-34.9) Is this a current diagnosis for this admission?: Yes Plan: Lifestyle modification dietary discretion advised. BMI 30.5 (4) Acid reflux Qualifiers: Esophagitis presence: without esophagitis Qualified Code(s): K21.9 - Gastro-esophageal reflux disease without esophagitis Is this a current diagnosis for this admission?: Yes Plan: TUMS and Maalox as needed Twice daily Pepcid (5) Left-sided weakness Is this a current diagnosis for this admission?: Yes Plan: Secondary to #1. Evaluation and management as above. - Time Time Spent with patient: 15-24 minutes Medications reviewed and adjusted accordingly: Yes Anticipated discharge: Acute Rehab Within: when bed available
[2019-07-17] MEDS ORDERED: FLUTICASONE NASAL SPRAY 50 MCG/SPRY 120 SPRAY/16 GM ONE (20:59)
[2019-07-17] MEDS: MELATONIN 5 MG TABLET PO SCH (21:14)
[2019-07-17] MEDS: ATORVASTATIN CALCIUM 80 MG TABLET PO SCH (21:15)
[2019-07-17] MEDS: FLUTICASONE NASAL SPRAY 50 MCG/SPRY 120 SPRAY/16 GM NASL SCH (21:16)
--- NOTE | 2019-07-18 02:03 | RADIOLOGY REPORT (SQ) ---
CT HEAD WITHOUT IV CONTRAST EXAM DATE: 07/18/2019 12:00 AM [employer] HISTORY: Suspected Increased ICP. COMPARISON: 07/12/2019 TECHNIQUE: CT scan of the brain without IV contrast. This exam was performed according to our departmental dose-optimization program, which includes automated exposure control, adjustment of the mA and/or kV according to patient size and/or use of iterative reconstruction technique. FINDINGS: The ventricles, cisterns, and sulci are age-appropriate. Again seen is a right basal ganglia lacunar infarct. No evidence of acute infarction, intracranial hemorrhage, extra-axial fluid collection, or midline shift. No air-fluid levels are seen in the paranasal sinuses to suggest acute sinusitis. No depressed skull fracture. IMPRESSION: 1. No acute intracranial hemorrhage. 2. Acute to subacute right basal ganglia lacunar infarct.
[2019-07-18] MEDS ORDERED: PROMETHAZINE HCL INJ 25 MG/1 ML VIAL ONE (04:26)
[2019-07-18] MEDS ORDERED: PROMETHAZINE HCL INJ 25 MG/1 ML VIAL IV ONE (04:30)
[2019-07-18] MEDS: HEPARIN SOD (PORCINE) 5,000 UNIT/ML 1 ML VIAL SUBCUT SCH ×3 (05:59→22:35)
[2019-07-18] MEDS: CALCIUM CARBONATE 500 MG TAB.CHEW PO PRN (06:04)
[2019-07-18] MEDS: LISINOPRIL 10 MG TABLET PO SCH (09:20)
[2019-07-18] MEDS: FAMOTIDINE 20 MG TABLET PO SCH ×2 (09:20→22:29)
[2019-07-18] MEDS: AMLODIPINE BESYLATE 10 MG TABLET PO SCH (09:20)
[2019-07-18] MEDS: CLOPIDOGREL BISULFATE 75 MG TABLET PO SCH (09:20)
[2019-07-18] MEDS: FLUTICASONE NASAL SPRAY 50 MCG/SPRY 120 SPRAY/16 GM NASL SCH ×2 (09:21→22:30)
[2019-07-18] MEDS: ASPIRIN 81 MG TABLET, ENT COATED PO SCH (09:21)
[2019-07-18] MEDS ORDERED: NORMAL SALINE 1000 ML 1,000 ML IV ONE (14:34)
--- NOTE | 2019-07-18 14:59 | PDOC PROGRESS REPORT ---
Subjective Progress Note for:: 07/18/19 Subjective:: ALLAN LIMON is a 64 year old male with a past medical history of hypertension who was admitted 07/12/2018 with an acute lacunar right thalamus CVA. The patient was seen on afternoon rounds; spoke with his by home. He was found resting in bed, comfortably, on room air. Continued left side weakness w/ difficulty with coordination; waxing and waning. Overall, improved. Did have nausea and vomiting proceeded by diarrhea last night. No further episodes today. Does have slight nausea; tolerating liquids but has not yet tried solids. tells me she has been notified that they have received approval for [facility] Acute Rehab. He denies headache, dizziness, blurred vision, slurred speech/difficulty swallowing chest pain, palpitations, dyspnea, orthopnea, abdominal pain, vomiting. He has no other questions or concerns at this time. No concerns per nursing. Reason For Visit: CVA RIGHT THALAMUS,HYPERTENSION,OBESITY,LEFT SIDED Physical Exam Vital Signs: Temp Pulse Resp BP Pulse Ox 97.6 F 80 18 132/86 H 96 07/17/19 20:18 07/18/19 02:00 07/17/19 20:18 07/17/19 20:18 07/17/19 20:18 Intake & Output 07/17/19 07/18/19 07/19/19 06:59 06:59 06:59 Intake Total 1200 830 Output Total 1200 2285 Balance 0 -1455 Weight 104.1 kg 102.9 kg General appearance: PRESENT: no acute distress, cooperative, well-developed, well-nourished Head exam: PRESENT: atraumatic, normocephalic Eye exam: PRESENT: conjunctiva pink, EOMI, PERRLA. ABSENT: scleral icterus Ear exam: PRESENT: normal external ear exam Mouth exam: PRESENT: moist, tongue midline Neck exam: ABSENT: carotid bruit, full ROM, JVD, lymphadenopathy, meningismus, tenderness, thyromegaly, tracheal deviation, tracheostomy, other Respiratory exam: PRESENT: clear to auscultation delores, symmetrical, unlabored. ABSENT: rales, rhonchi, wheezes Cardiovascular exam: PRESENT: RRR. ABSENT: diastolic murmur, rubs, systolic murmur Vascular exam: PRESENT: normal capillary refill GI/Abdominal exam: PRESENT: normal bowel sounds, soft. ABSENT: distended, guarding, mass, organolmegaly, rebound, tenderness Extremities exam: PRESENT: full ROM. ABSENT: calf tenderness, clubbing, pedal edema Musculoskeletal exam: PRESENT: ambulatory Neurological exam: PRESENT: alert, awake, oriented to person, oriented to place, oriented to time, oriented to situation, CN II-XII grossly intact, other - Rt supervisor framing mill 5/5, Lt supervisor framing mill 4/5, BLE dorsiflexion 5/5, no facial asymetry. Decreased coordination LUE. ABSENT: motor sensory deficit Psychiatric exam: PRESENT: appropriate affect, normal mood. ABSENT: homicidal ideation, suicidal ideation Skin exam: PRESENT: dry, intact, warm. ABSENT: cyanosis, rash Results Laboratory Results: 07/12/19 04:51 07/12/19 04:32 07/12/19 07/12/19 04:32 04:32 Creatine Kinase 128 CK-MB (CK-2) 1.64 Troponin I < 0.012 Impressions: Brain MRI with MRA 07/12/19 00:00 IMPRESSION: NORMAL MRA OF [place]. Head MRI 07/12/19 00:00 IMPRESSION: Acute, nonhemorrhagic lacunar type infarct right thalamus. EVIDENCE OF ACUTE STROKE: YES. RIGHT ENGRAVER RUBBER. Venous Doppler Study 07/12/19 00:00 IMPRESSION: NO EVIDENCE DVT OR SVT IN EITHER LEG. Chest X-Ray 07/12/19 04:14 IMPRESSION: No acute cardiopulmonary abnormality copyright 2011 [employer]- All Rights Reserved Carotid Doppler Study 07/12/19 07:44 IMPRESSION: NO HEMODYNAMICALLY SIGNIFICANT STENOSIS. Head CT 07/18/19 00:00 IMPRESSION: 1. No acute intracranial hemorrhage. 2. Acute to subacute right basal ganglia lacunar infarct. Assessment and Plan - Diagnosis (1) Cerebrovascular accident (CVA) of right thalamus Is this a current diagnosis for this admission?: Yes Plan: Head CT negative. Head MRA benign. Head MRI demonstrated Acute, nonhemorrhagic lacunar type infarct of the right thalamus Head CT (07/18/19) Acute to subacute right basal ganglia lacunar infarct. No intracranial hemorrhage. Carotid Doppler negative for hemodynamically significant stenosis. Bilateral venous Dopplers negative for SVT or DVT. EKG shows sinus rhythm; thus far no abnormal rhythms by telemetry. A1c 6.1%. HDL 42, LDL 127, triglycerides 123, total cholesterol 182. Patient was admitted to [facility] He is placed on daily aspirin, statin, and Plavix. Continue amlodipine and lisinopril for blood pressure control. PT/OT/speech therapy consultation. To transfer to acute rehab pending insurance authorization. (2) Hypertension Is this a current diagnosis for this admission?: Yes Plan: Excellent blood pressure control today. Initial blood pressure in the ED 190s/90s Continue amlodipine and lisinopril IV hydralazine as needed for blood pressure control Cardiac diet (3) Obesity (BMI 30.0-34.9) Is this a current diagnosis for this admission?: Yes Plan: Lifestyle modification dietary discretion advised. BMI 29.9 (4) Acid reflux Qualifiers: Esophagitis presence: without esophagitis Qualified Code(s): K21.9 - Gastro-esophageal reflux disease without esophagitis Is this a current diagnosis for this admission?: Yes Plan: TUMS and Maalox as needed Twice daily Pepcid (5) Left-sided weakness Is this a current diagnosis for this admission?: Yes Plan: Secondary to #1. Evaluation and management as above. (6) Nausea & vomiting Is this a current diagnosis for this admission?: Yes Plan: Unclear etiology; patient believes related to gravy on meals yesterday. Repeat Head CT reassuring. Zofran as needed. 1 L NS bolus today. BLAISE diet. - Time Time Spent with patient: 25-34 minutes Medications reviewed and adjusted accordingly: Yes Anticipated discharge: Acute Rehab Within: when bed available
[2019-07-18] MEDS: ATORVASTATIN CALCIUM 80 MG TABLET PO SCH (22:29)
[2019-07-18] MEDS: MELATONIN 5 MG TABLET PO SCH (22:29)
[2019-07-19] MEDS: HEPARIN SOD (PORCINE) 5,000 UNIT/ML 1 ML VIAL SUBCUT SCH (06:21)
[2019-07-19] MEDS: CLOPIDOGREL BISULFATE 75 MG TABLET PO SCH (09:11)
[2019-07-19] MEDS: ASPIRIN 81 MG TABLET, ENT COATED PO SCH (09:11)
[2019-07-19] MEDS: FAMOTIDINE 20 MG TABLET PO SCH (09:11)
[2019-07-19] MEDS: LISINOPRIL 10 MG TABLET PO SCH (09:11)
[2019-07-19] MEDS: AMLODIPINE BESYLATE 10 MG TABLET PO SCH (09:11)
[2019-07-19] MEDS: FLUTICASONE NASAL SPRAY 50 MCG/SPRY 120 SPRAY/16 GM NASL SCH (09:12)
[2019-07-19 09:26] VITALS: BP 116/62
== END 2019-07-19 13:20 | disposition short-term general hospital (02) | DRG 66 ==
LOC: ER 04:05 → EH 08:07 → 3W 12:39
PROVIDERS: ADMIT Internal Medicine; ATTEND Internal Medicine
DX: I63.81 Other cerebral infarction due to occlusion or stenosis of small artery (principal); E66.9 Obesity, unspecified; I10 Essential (primary) hypertension; K21.9 Gastro-esophageal reflux disease without esophagitis; R53.1 Weakness; Z68.34 Body mass index [BMI] 34.0-34.9, adult; Z79.82 Long term (current) use of aspirin
CPT/HCPCS: 36415; 70450; 70544; 70551; 71045; 80053; 80061; 82550; 82553; 82962; 83036; 84484; 85025; 85610; 85730; 93005; 93010; 93880; 93970; 96374; 99285; J0360; J1644; J2405; J2550; J3490; J7030

== ENCOUNTER → 2020-06-21 | Outpatient (CLI) | payer OTHER ==
--- NOTE | 2020-06-21 10:30 | ER RDC ASSESSMENT REPORT ---
Intake - In the Last 14 days Have you traveled outside [place]?: No Have you been in close contact with someone CONFIRMED: Yes Worked in Healthcare?: No - Symptoms Subjective Fever([place] feverish): No Chills: No Muscule Aches: No Runny Nose: No Sore Throat: No Cough (New or worsening chronic cough): No Shortness of breath: No Nausea or Vomiting: No Headache: No Abdominal Pain: No Diarrhea(3 or more loose stools in last 24 hours): No - Do you have any of the following Chronic lung disease: Asthma or emphysema or COPD: No Cystic Fibrosis: No Diabetes: No High Blood Pressure: Yes Cardiovascular Disease: Yes Chronic Kidney Disease: No Chronic Liver Disease: No Chronic blood disorder like Sickle Cell Disease: No Weak immune system due to disease or medication: No Neurologic condition that limits movement: No Developmental delay - Moderate to Severe: No Recent (within past 2 weeks) or current : No Morbid Obesity (>100 pounds over ideal weight): No Obesity Comment: Height 6 feet 1 inches weight 235 pounds - Objective Temperature: 97.7 F Pulse Rate: 68 Respiratory Rate: 16 Blood Pressure: 141/78 O2 Sat by Pulse Oximetry: 96 Objective: Given above, testing performed: If Testing Performed: Test Specimen Type Sent to General - General Information source: Patient Notes: Patient here at [facility] for Covid testing patient reports had exposure to in-laws who have tested positive for Covid patient denies any symptoms at this point. Patient's exposure was last weekend. Patient's primary care provider is with the [place] patient plans to follow-up with them as needed. - Related Data Allergies/Adverse Reactions: No Known Allergies Allergy (Unverified 07/12/19 06:36) Past Medical History - General Information source: Patient - Social History Smoking Status: Never Smoker Family History: Reviewed & Not Pertinent - Past Medical History Cardiac Medical History: Reports: Hx Hypertension Denies: Hx Congestive Heart Failure, Hx Coronary Artery Disease, Hx Heart Attack, Hx Hypercholesterolemia Past Surgical History: Reports: Hx Orthopedic Surgery, Other - Tear duct, Sinus Physical Exam - General General appearance: Appears well, Alert In distress: None Notes: PHYSICAL EXAMINATION: GENERAL: Well-appearing and in no acute distress. HEAD: Atraumatic, normocephalic. EYES: sclera anicteric, conjunctiva are normal. ENT: nares patent. Moist mucous membranes. NECK: Normal range of motion, supple without lymphadenopathy LUNGS: CTAB and equal. No wheezes rales or rhonchi. Respirations even and unlabored lung sounds clear. HEART: Regular rate and rhythm without murmurs ABDOMEN: Soft, nontender, normal bowel sounds, no guarding. EXTREMITIES: Normal range of motion, no pitting edema. No cyanosis. NEUROLOGICAL: Cranial nerves grossly intact. Normal speech. Normal gait. PSYCH: Normal mood, normal affect. SKIN: Warm, Dry, normal turgor, no rashes or lesions noted Diagnostic Results Laboratory Results: Pending Covid testing results. Patient provided instructions regarding Covid to include: As a person under investigation for Covid 19, the [facility] of Health and Human Services, division of public health advises you to adhere to the following guidance until your test results are reported to you. If your test result is positive, you will receive additional information from your provider and your local health department at that time. Remain at home until you are cleared by the health provider or public health authorities. Keep a log of visitors to your home, notify any visitors to your home of your isolation status. If you plan to move to a new address or leave the county, notify the local health department in your County. Call your doctor or seek care if you have an urgent medical need. Before seeking medical care, call ahead to get instructions from the provider before arriving at the medical office clinic or hospital. Notify them that you are being tested for the virus that causes Covid 19 so that arrangements can be made, as necessary, to prevent transmission to others in the healthcare setting. Next, notify the local health department in your county. If a medical emergency arises and you need to call 911, inform the first responders that you are being tested for the virus that causes Covid 19. Next, notify the local health department in your county. Patient Education/Counseling Counseling/Education: Patient presents with upper respiratory symptoms worrisome for possible Covid 19. Patient does not have emergency worring symptoms such as difficulty breathing, shortness of breath, chest pain, pressure, confusion or cyanosis. Patient appears suitable for discharge. Patient instructed [facility] Patient's vital signs are stable and patient is nontoxic in appearance. Good return precautions have been discussed with patient, patient verbalized understanding and is agreeable with discharge plan of care at this time. RDC Discharge - Discharge Clinical Impression: Encounter for screening laboratory testing for COVID-19 virus in asymptomatic patient Condition: Stable Disposition: Home; Selfcare
[2020-06-21 10:31] VITALS: BP 141/78
== END ==
LOC: RDC 09:00
PROVIDERS: ATTEND Nurse Practitioner Family
DX: Z20.822 Contact with and (suspected) exposure to COVID-19 (principal); I10 Essential (primary) hypertension
CPT/HCPCS: 87635; 99202; 99211; C9803